=== PATIENT | female | born 1990 | race African-American/Black ===

== ENCOUNTER 2018-04-04 04:04 | Emergency (ER) | payer MEDICARE ==
[2018-04-04 04:47] LABS: ADD MAN DIFF? NO
[2018-04-04] MEDS: MORPHINE SULFATE 4 MG/ML DISP.SYRIN. IV (04:53)
[2018-04-04 04:57] LABS: BASO % 1 % (0-3); EOS # 0.1 x10^3/uL (0.0-0.7); EOS % 2 % (0-3); HEMATOCRIT 35.2 % (36.0-47.0); HEMOGLOBIN 11.9 g/dL (12.0-15.5); LYMPH # 2.4 x10^3/uL (1.0-4.8); LYMPH % 33 % (24-48); MEAN CORPUSCULAR HEMOGLOBIN 28 pg (25-35); MEAN CORPUSCULAR HGB CONC 34 g/dL (31-37); MEAN CORPUSCULAR VOLUME 83 fL (79-100); MONO # 0.5 x10^3/uL (0.0-1.1); MONO % 7 % (0-9); NEUT # 4.1 x10^3uL (1.8-7.7); NEUT % 58 % (31-73); PLATELET COUNT 228 x10^3/uL (140-400); RED BLOOD COUNT 4.25 x10^6/uL (3.50-5.40); RED CELL DISTRIBUTION WIDTH 16.1 % (11.5-14.5); WHITE BLOOD COUNT 7.1 x10^3/uL (4.0-11.0)
[2018-04-04 05:16] LABS: D-DIMER < 0.27 ug/mlFEU (0.00-0.50)
[2018-04-04 05:17] LABS: ANION GAP 8 (6-14); BLOOD UREA NITROGEN 5 mg/dL (7-20); CALCIUM 8.6 mg/dL (8.5-10.1); CARBON DIOXIDE 29 mmol/L (21-32); CHLORIDE 102 mmol/L (98-107); CREATININE 0.7 mg/dL (0.6-1.0); GFR 121.5; GLUCOSE 191 mg/dL (70-99); SODIUM 139 mmol/L (136-145)
[2018-04-04 05:24] LABS: TROPONINI < 0.017 ng/mL (0.000-0.055)
== END 2018-04-04 06:07 | disposition home or self-care (01) ==
LOC: ER 04:04
DX: R07.89 Other chest pain (principal); K21.9 Gastro-esophageal reflux disease without esophagitis; I10 Essential (primary) hypertension; E11.9 Type 2 diabetes mellitus without complications; F20.9 Schizophrenia, unspecified; Z88.0 Allergy status to penicillin
CPT/HCPCS: 36415; 71045; 80048; 84484; 85025; 85379; 93005; 96374; 99285-25; J2270

== ENCOUNTER 2018-04-12 11:21 | Emergency (ER) | payer MEDICARE ==
[2018-04-12 11:49] LABS: URINE HCG POC HCG NEGATIVE (Negative)
== END 2018-04-12 13:12 | disposition home or self-care (01) ==
LOC: ER 11:21
DX: R07.89 Other chest pain (principal); R05 Cough; I10 Essential (primary) hypertension; K21.9 Gastro-esophageal reflux disease without esophagitis; E11.9 Type 2 diabetes mellitus without complications; F20.9 Schizophrenia, unspecified; Z88.0 Allergy status to penicillin
CPT/HCPCS: 71046; 81025; 99284

== ENCOUNTER 2018-12-15 18:39 | Emergency (ER) | payer MEDICARE ==
[~2018-12-15] VITALS: Ht 170.2 cm; Wt 101.2 kg
[~2018-12-15 18:39] MED LIST: AZIT250T6 PO; HYDR-3164 PO; IBUP-1060 PO
[2018-12-15] MEDS ORDERED: IV NORMAL SALINE 1000ML BAG 1,000 ML IV SCH (18:51)
[2018-12-15] MEDS ORDERED: ONDANSETRON PF 4 MG/2 ML VIAL. IV ONE (19:00)
[2018-12-15] MEDS ORDERED: MORPHINE SULFATE 2 MG/ML VIAL. IV/SQ PRN (19:00)
[2018-12-15 19:04] LABS: BILIRUBIN,URINE NEGATIVE (NEG); CLARITY,URINE CLEAR; COLOR,URINE YELLOW; NITRITE,URINE NEGATIVE (NEG); PH,URINE 7.5; PROTEIN,URINE NEGATIVE (NEG-TRACE); UROBILINOGEN,URINE 0.2 mg/dL (0.2 mg/dL)
[2018-12-15 19:13] LABS: BACTERIA,URINE FEW /HPF (0-FEW); RBC,URINE 0 /HPF (0-2); SQUAMOUS EPITHELIAL CELL,UR MANY /LPF; WBC,URINE 0 /HPF (0-4)
--- NOTE | 2018-12-15 19:15 | PHYS DOC ---
Past Medical History Past Medical History: Diabetes-Type II, GERD, Hypertension, Schizophrenia Past Surgical History: Tonsillectomy Alcohol Use: None Drug Use: None Adult General Chief Complaint Chief Complaint: vomiting blood HPI HPI Patient is a 28-year-old female who presents with complaint of one-week history of nausea and vomiting. She states that initially she was having symptoms of upper respiratory infection to include a cough that was productive of sputum. She states that she is also been feeling short of breath and having some pain in her lower mid chest. She states that she still has a little bit of a cough but that is improved. She does indicate that she has been continuing to have some shortness of breath and lightheadedness however. She states that the vomitus has had some pink tinging to it making her believe that it's bloody. Patient does report to pain in her upper and mid abdomen that she rates at an 8 out of 10. She denies any radiation of the pain into her back. Review of Systems Review of Systems Constitutional: Denies fever or chills [] Respiratory: Positive cough and shortness of breath [] Cardiovascular: No additional information not addressed in HPI [] GI: Complains of abdominal pain with nausea and vomiting. Denies diarrhea [] Integument: Denies rash or skin lesions [] Neurologic: Denies headache, focal weakness or sensory changes [] All other systems were reviewed and found to be within normal limits, except as documented in this note. Current Medications Current Medications Current Medications Medications (Trade) Dose Ordered Sig/Christiano Start Time Stop Time Status Last Admin Dose Admin Info (CONTRAST GIVEN -- Rx MONITORING) 1 each PRN DAILY PRN 12/15/18 20:45 12/17/18 20:44 Iohexol (Omnipaque 300 Mg/ml) 75 ml 1X ONCE 12/15/18 20:45 12/15/18 20:46 DC 12/15/18 20:53 75 ML Morphine Sulfate (Morphine Sulfate) 2 mg PRN Q15MIN PRN 12/15/18 19:00 12/16/18 18:59 12/15/18 20:11 2 MG Ondansetron HCl (Zofran) 4 mg 1X ONCE 12/15/18 19:00 12/15/18 19:01 DC 12/15/18 20:11 4 MG Sodium Chloride 1,000 ml @ 1,000 mls/hr Q1H 12/15/18 18:51 12/15/18 19:50 DC 12/15/18 20:12 1,000 MLS/HR Allergies Allergies Allergies Coded Allergies Type Severity Reaction Last Updated Verified Penicillins Allergy Intermediate 04/12/18 Yes Physical Exam Physical Exam Constitutional: Well developed, well nourished, no acute distress, non-toxic appearance. [] HENT: Normocephalic, atraumatic, bilateral external ears normal, oropharynx moist, no oral exudates, nose normal. [] Eyes: PERRLA, EOMI, conjunctiva normal, no discharge. [] Neck: Normal range of motion, no tenderness, supple, no stridor. [] Cardiovascular: Regular rate and rhythm[] Lungs & Thorax: Bilateral breath sounds clear to auscultation [] Abdomen: Bowel sounds normal, soft, with mid to upper abdominal tenderness. [] Skin: Warm, dry, no erythema, no rash. [] Extremities: No tenderness, no cyanosis, no clubbing, ROM intact, no edema. [] Neurologic: Alert and oriented X 3, no focal deficits noted. [] Current Patient Data Vital Signs Vital Signs Date Time Temp Pulse Resp B/P (MAP) Pulse Ox O2 Delivery O2 Flow Rate FiO2 12/15/18 20:11 16 97 Room Air 12/15/18 19:09 98.6 112 144/79 (100) 98.6 Lab Values Laboratory Tests Test 12/15/18 18:46 12/15/18 18:48 12/15/18 19:50 POC Urine HCG, Qualitative Hcg negative (Negative) Urine Collection Type Unknown Urine Color Yellow Urine Clarity Clear Urine pH 7.5 Urine Specific [place] 1.010 Urine Protein Negative mg/dL (NEG-TRACE) Urine Glucose (UA) 100 mg/dL (NEG) Urine Ketones (Stick) Negative mg/dL (NEG) Urine Blood Negative (NEG) Urine Nitrite Negative (NEG) Urine Bilirubin Negative (NEG) Urine Urobilinogen Dipstick 0.2 mg/dL (0.2 mg/dL) Urine Leukocyte Esterase Negative (NEG) Urine RBC 0 /HPF (0-2) Urine WBC 0 /HPF (0-4) Urine Squamous Epithelial Cells Many /LPF Urine Bacteria Few /HPF (0-FEW) Urine Mucus Slight /LPF White Blood Count 6.6 x10^3/uL (4.0-11.0) Red Blood Count 5.08 x10^6/uL (3.50-5.40) Hemoglobin 13.6 g/dL (12.0-15.5) Hematocrit 41.1 % (36.0-47.0) Mean Corpuscular Volume 81 fL (79-100) Mean Corpuscular Hemoglobin 27 pg (25-35) Mean Corpuscular Hemoglobin Concent 33 g/dL (31-37) Red Cell Distribution Width 16.8 % (11.5-14.5) H Platelet Count 364 x10^3/uL (140-400) Neutrophils (%) (Auto) 41 % (31-73) Lymphocytes (%) (Auto) 48 % (24-48) Monocytes (%) (Auto) 9 % (0-9) Eosinophils (%) (Auto) 1 % (0-3) Basophils (%) (Auto) 1 % (0-3) Neutrophils # (Auto) 2.7 x10^3uL (1.8-7.7) Lymphocytes # (Auto) 3.2 x10^3/uL (1.0-4.8) Monocytes # (Auto) 0.6 x10^3/uL (0.0-1.1) Eosinophils # (Auto) 0.1 x10^3/uL (0.0-0.7) Basophils # (Auto) 0.1 x10^3/uL (0.0-0.2) D-Dimer (Elizabeth) < 0.27 ug/mlFEU Sodium Level 138 mmol/L (136-145) Potassium Level 4.0 mmol/L (3.5-5.1) Chloride Level 99 mmol/L (98-107) Carbon Dioxide Level 27 mmol/L (21-32) Anion Gap 12 (6-14) Blood Urea Nitrogen 5 mg/dL (7-20) L Creatinine 0.6 mg/dL (0.6-1.0) Estimated GFR (Cockcroft-Gault) 145.1 BUN/Creatinine Ratio 8 (6-20) Glucose Level 125 mg/dL (70-99) H Calcium Level 9.3 mg/dL (8.5-10.1) Total Bilirubin 0.1 mg/dL (0.2-1.0) L Aspartate Amino Transferase (AST) 12 U/L (15-37) L Alanine Aminotransferase (ALT) 13 U/L (14-59) L Alkaline Phosphatase 98 U/L (46-116) Total Protein 8.3 g/dL (6.4-8.2) H Albumin 3.7 g/dL (3.4-5.0) Albumin/Globulin Ratio 0.8 (1.0-1.7) L Lipase 52 U/L (73-393) L Laboratory Tests 12/15/18 19:50 Laboratory Tests 12/15/18 19:50 EKG EKG [] Radiology/Procedures Radiology/Procedures [] Impressions: PROCEDURE: PORTABLE CHEST 1V PROCEDURE: PORTABLE CHEST 1V CLINICAL INDICATION: COUGH COMPARISON: 04/12/2018 FINDINGS: No pneumothorax identified. Cardiac and mediastinal contours unremarkable. No pulmonary consolidation or acute airspace disease. No acute osseous abnormalities identified. IMPRESSION: No pulmonary consolidation or acute airspace disease. Electronically signed by: Markell Capone DO (12/15/2018 7:47 PM) [facility] PROCEDURE: CT ABD PELV W/ IV CONTRST ONLY PQRS Compliance statement: One or more of the following individualized dose reduction techniques were utilized for this examination: 1. Automated exposure control. 2. Adjustment of the mA and/or kV according to patient size. 3. Use of iterative reconstruction technique. Indication:abd pain, OMNI 300, 75ml TECHNIQUE: CT abdomen and pelvis with IV contrast with multiplanar reformats. COMPARISON: None FINDINGS: Heart is normal in size. No pericardial or pleural effusion. Liver, spleen, pancreas, adrenals and kidneys within normal limits. Status post cholecystectomy. No enlarged retroperitoneal or pelvic adenopathy. No free pelvic fluid or ascites. Mildly enlarged bilateral inguinal lymph nodes, nonspecific likely reactive, the largest on the left side measuring 1.5 x 1.0 cm. Enlarged right external iliac chain lymph node measuring 1.8 x 1.2 cm. No bowel obstruction. Normal appendix. Anteverted uterus. Urinary bladder is within normal limits. No pneumoperitoneum. No suspicious bony lesion. IMPRESSION: 1. No acute findings. 2. Mildly enlarged inguinal and right external iliac chain lymph nodes, nonspecific likely reactive. Electronically signed by: Markell Capone DO (12/15/2018 9:10 PM) [facility] Course & Med Decision Making Course & Med Decision Making Pertinent Labs and Imaging studies reviewed. (See chart for details) [] Dragon Disclaimer Dragon Disclaimer This electronic medical record was generated, in whole or in part, using a voice recognition dictation system. Departure Departure Impression: Primary Impression: Acute bronchitis Additional Impression: Nausea and vomiting Disposition: 01 HOME, SELF-CARE Condition: STABLE Referrals: NO PCP (PCP) Patient Instructions: Acute Bronchitis, Nausea and Vomiting Scripts Promethazine Hcl/Codeine (PROMETHAZINE-CODEINE SYRUP) 118 Ml Syrup 5 ML PO Q4-6HRS PRN for COUGH, #120 ML Prov: CRISTAL SCHREIBER Jr. DO 12/15/18 Azithromycin (ZITHROMAX) 250 Mg Tablet 1 PKG PO UD, #6 TAB Prov: CRISTAL SCHREIBER Jr. DO 12/15/18 Problem Qualifiers Primary Impression: Acute bronchitis Bronchitis organism: unspecified organism Qualified Codes: J20.9 - Acute bronchitis, unspecified Additional Impression: Nausea and vomiting Vomiting type: unspecified Vomiting Intractability: non-intractable Qualified Codes: R11.2 - Nausea with vomiting, unspecified CRISTAL SCHREIBER Jr. DO Dec 15, 2018 19:15
--- NOTE | 2018-12-15 19:50 | RAD ---
PROCEDURE: PORTABLE CHEST 1V CLINICAL INDICATION: COUGH COMPARISON: 04/12/2018 FINDINGS: No pneumothorax identified. Cardiac and mediastinal contours unremarkable. No pulmonary consolidation or acute airspace disease. No acute osseous abnormalities identified. IMPRESSION: No pulmonary consolidation or acute airspace disease. Electronically signed by: Markell Capone DO (12/15/2018 7:47 PM) [facility]
[2018-12-15 19:56] LABS: BASO # 0.1 x10^3/uL (0.0-0.2); BASO % 1 % (0-3); EOS # 0.1 x10^3/uL (0.0-0.7); EOS % 1 % (0-3); HEMATOCRIT 41.1 % (36.0-47.0); HEMOGLOBIN 13.6 g/dL (12.0-15.5); LYMPH # 3.2 x10^3/uL (1.0-4.8); LYMPH % 48 % (24-48); MEAN CORPUSCULAR HEMOGLOBIN 27 pg (25-35); MEAN CORPUSCULAR HGB CONC 33 g/dL (31-37); MEAN CORPUSCULAR VOLUME 81 fL (79-100); MONO # 0.6 x10^3/uL (0.0-1.1); MONO % 9 % (0-9); NEUT # 2.7 x10^3uL (1.8-7.7); NEUT % 41 % (31-73); PLATELET COUNT 364 x10^3/uL (140-400); RED BLOOD COUNT 5.08 x10^6/uL (3.50-5.40); RED CELL DISTRIBUTION WIDTH 16.8 % (11.5-14.5); WHITE BLOOD COUNT 6.6 x10^3/uL (4.0-11.0)
[2018-12-15 20:03] LABS: CALCIUM 9.3 mg/dL (8.5-10.1); CREATININE 0.6 mg/dL (0.6-1.0); GFR 145.1
[2018-12-15 20:09] LABS: ALBUMIN 3.7 g/dL (3.4-5.0); ALBUMIN/GLOBULIN RATIO 0.8 (1.0-1.7); TOTAL BILIRUBIN 0.1 mg/dL (0.2-1.0); TOTAL PROTEIN 8.3 g/dL (6.4-8.2)
[2018-12-15] MEDS ORDERED: IOHEXOL 300 MG/ML 100ML VIAL. IV ONE (20:45)
[2018-12-15] MEDS ORDERED: CONTRAST GIVEN. MC PRN (20:45)
[2018-12-15 21:00] VITALS: BP 124/74
--- NOTE | 2018-12-15 21:13 | RAD ---
PQRS Compliance statement: One or more of the following individualized dose reduction techniques were utilized for this examination: 1. Automated exposure control. 2. Adjustment of the mA and/or kV according to patient size. 3. Use of iterative reconstruction technique. Indication:abd pain, OMNI 300, 75ml TECHNIQUE: CT abdomen and pelvis with IV contrast with multiplanar reformats. COMPARISON: None FINDINGS: Heart is normal in size. No pericardial or pleural effusion. Liver, spleen, pancreas, adrenals and kidneys within normal limits. Status post cholecystectomy. No enlarged retroperitoneal or pelvic adenopathy. No free pelvic fluid or ascites. Mildly enlarged bilateral inguinal lymph nodes, nonspecific likely reactive, the largest on the left side measuring 1.5 x 1.0 cm. Enlarged right external iliac chain lymph node measuring 1.8 x 1.2 cm. No bowel obstruction. Normal appendix. Anteverted uterus. Urinary bladder is within normal limits. No pneumoperitoneum. No suspicious bony lesion. IMPRESSION: 1. No acute findings. 2. Mildly enlarged inguinal and right external iliac chain lymph nodes, nonspecific likely reactive. Electronically signed by: Markell Capone DO (12/15/2018 9:10 PM) [facility]
[2018-12-15] MEDS ORDERED: AZIT250T PO (21:47)
[2018-12-15] MEDS ORDERED: PROM118S5 PO (21:47)
--- NOTE | 2018-12-16 08:44 | EKG ---
[facility] [address] [place] [address] Test Date: 2018-12-15 Test Time: 19:28:07 Pat Name: AGUILAR JACOBSEN Department: Room: Gender: Female Mutuel Clerk: VI : 1990 Requested By: CRISTAL SCHREIBER Order Number: [id number] Reading MD: Spencer Burnett MD Measurements Intervals [place] Rate: 99 P: 45 LA: 164 QRS: 26 QRSD: 88 T: 17 QT: 342 QTc: 444 Interpretive Statements SINUS RHYTHM Electronically Signed On 12-19-2018 15:12:36 CDT by Spencer Burnett MD
== END 2018-12-15 21:57 | disposition home or self-care (01) ==
LOC: ER 18:39
DX: J20.9 Acute bronchitis, unspecified (principal); R11.2 Nausea with vomiting, unspecified; R06.02 Shortness of breath; R42 Dizziness and giddiness; K21.9 Gastro-esophageal reflux disease without esophagitis; I10 Essential (primary) hypertension; E11.9 Type 2 diabetes mellitus without complications; F20.9 Schizophrenia, unspecified; Z88.0 Allergy status to penicillin
CPT/HCPCS: 36415; 71045; 74177; 80053; 81001; 81025; 83690; 85025; 85379; 93005; 96361; 96374; 96375; 99285; J2270; J2405; J7030; Q9967

== ENCOUNTER 2019-02-18 15:42 | Emergency (ER) | payer MEDICARE ==
[~2019-02-18] VITALS: Ht 170.2 cm; Wt 103.4 kg
[~2019-02-18 15:42] MED LIST changes: +AZIT250T PO; +PROM118S5 PO
[2019-02-18] MEDS ORDERED: ONDANSETRON PF 4 MG/2 ML VIAL. IV ONE (16:00)
[2019-02-18] MEDS ORDERED: KETOROLAC 15 MG/ML VIAL. IV ONE (16:00)
[2019-02-18] MEDS ORDERED: IV NORMAL SALINE 1000ML BAG 1,000 ML IV ONE (16:00)
[2019-02-18 16:17] LABS: BILIRUBIN,URINE NEGATIVE (NEG); CLARITY,URINE CLEAR; COLOR,URINE YELLOW; NITRITE,URINE NEGATIVE (NEG); PH,URINE 6.5; PROTEIN,URINE NEGATIVE (NEG-TRACE)
[2019-02-18 16:27] LABS: BACTERIA,URINE FEW /HPF (0-FEW); RBC,URINE 0 /HPF (0-2); SQUAMOUS EPITHELIAL CELL,UR MANY /LPF
[2019-02-18 16:28] LABS: BASO # 0.1 x10^3/uL (0.0-0.2); BASO % 1 % (0-3); EOS # 0.1 x10^3/uL (0.0-0.7); EOS % 1 % (0-3); HEMATOCRIT 38.2 % (36.0-47.0); HEMOGLOBIN 12.7 g/dL (12.0-15.5); LYMPH # 3.3 x10^3/uL (1.0-4.8); LYMPH % 33 % (24-48); MEAN CORPUSCULAR HEMOGLOBIN 26 pg (25-35); MEAN CORPUSCULAR HGB CONC 33 g/dL (31-37); MEAN CORPUSCULAR VOLUME 77 fL (79-100); MONO # 0.4 x10^3/uL (0.0-1.1); MONO % 4 % (0-9); NEUT % 60 % (31-73); PLATELET COUNT 367 x10^3/uL (140-400); RED BLOOD COUNT 4.94 x10^6/uL (3.50-5.40); RED CELL DISTRIBUTION WIDTH 15.2 % (11.5-14.5); WHITE BLOOD COUNT 9.9 x10^3/uL (4.0-11.0)
[2019-02-18 16:30] VITALS: BP 121/64
[2019-02-18 16:39] LABS: CALCIUM 9.2 mg/dL (8.5-10.1); CREATININE 0.6 mg/dL (0.6-1.0); GFR 145.1; POTASSIUM 3.8 mmol/L (3.5-5.1)
[2019-02-18 16:46] LABS: ALBUMIN 3.2 g/dL (3.4-5.0); ALBUMIN/GLOBULIN RATIO 0.7 (1.0-1.7); TOTAL BILIRUBIN 0.2 mg/dL (0.2-1.0); TOTAL PROTEIN 7.6 g/dL (6.4-8.2)
--- NOTE | 2019-02-18 16:55 | RAD ---
AP portable chest radiograph 02/18/2019 Clinical History: Shortness of breath and fever. An AP erect portable digital radiograph of the chest was obtained. Comparison study is dated 12/15/2018. The cardiac and mediastinal silhouettes are within normal limits in size and configuration. No acute pulmonary infiltrate is seen. No pleural effusion or pneumothorax is noted. The osseous structures are grossly intact. Impression: No acute abnormality is seen. Electronically signed by: Mauricio Ng MD (02/18/2019 4:52 PM) [facility]
[2019-02-18] MEDS ORDERED: BENZ100C PO (17:06)
--- NOTE | 2019-02-18 18:00 | PHYS DOC ---
Past Medical History Past Medical History: Diabetes-Type II, GERD, Hypertension, Schizophrenia Past Surgical History: Cholecystectomy, Tonsillectomy Alcohol Use: None Drug Use: None Adult General Chief Complaint Chief Complaint: MULTIPLE COMPLAINTS HPI HPI Patient is a 28 year old female brought in by emesis with multiple complaints she has had abdominal pain on and off for 2 months she ate some pizza that she touches her up some blood but perhaps it was just because she's not sure. In addition she has a cough she has a runny nose she has body aches she has a little bit of a sore throat no definite fever that she knows but she says she feels similar to last time she had pneumonia and she wants to be checked for that. Review of Systems Review of Systems Musculoskeletal: Denies back pain or joint pain [] Integument: Denies rash or skin lesions [] Neurologic: Denies headache, focal weakness or sensory changes [] Endocrine: Denies polyuria or polydipsia [] All other systems were reviewed and found to be within normal limits, except as documented in this note. Current Medications Current Medications Current Medications Medications (Trade) Dose Ordered Sig/Christiano Start Time Stop Time Status Last Admin Dose Admin Ketorolac Tromethamine (Toradol 15mg Vial) 15 mg 1X ONCE 02/18/19 16:00 02/18/19 16:01 DC 02/18/19 16:15 15 MG Ondansetron HCl (Zofran) 4 mg 1X ONCE 02/18/19 16:00 02/18/19 16:01 DC 02/18/19 16:15 4 MG Sodium Chloride 1,000 ml @ 1,000 mls/hr 1X ONCE 02/18/19 16:00 02/18/19 16:59 DC 02/18/19 16:00 1,000 MLS/HR Allergies Allergies Allergies Coded Allergies Type Severity Reaction Last Updated Verified Penicillins Allergy Intermediate 04/12/18 Yes lisinopril Allergy Intermediate RASH 02/18/19 Yes Physical Exam Physical Exam Constitutional: Well developed, well nourished, no acute distress, non-toxic appearance. [] HENT: Normocephalic, atraumatic, bilateral external ears normal, oropharynx moist, no oral exudates, nose normal. [] Eyes: PERRLA. Neck: Normal range of motion, no tenderness, supple, no stridor. [] Cardiovascular:Heart rate regular rhythm, no murmur [] Lungs & Thorax: Bilateral breath sounds clear to auscultation [] Abdomen: Bowel sounds normal, soft, no tenderness, no masses, no pulsatile masses. [] Extremities: No tenderness, no cyanosis, no clubbing, ROM intact, no edema. [] Neurologic: Alert and oriented X 3, normal motor function, normal sensory function, no focal deficits noted. [] Psychologic: Affect normal, judgement normal, mood normal. [] Current Patient Data Vital Signs Vital Signs Date Time Temp Pulse Resp B/P (MAP) Pulse Ox O2 Delivery O2 Flow Rate FiO2 02/18/19 16:30 102 20 121/64 (83) 99 Room Air 02/18/19 15:48 97.9 97.9 Lab Values Laboratory Tests Test 02/18/19 16:08 02/18/19 16:11 02/18/19 16:23 Urine Collection Type Unknown Urine Color Yellow Urine Clarity Clear Urine pH 6.5 Urine Specific [place] >=1.030 Urine Protein Negative mg/dL (NEG-TRACE) Urine Glucose (UA) 500 mg/dL (NEG) Urine Ketones (Stick) Negative mg/dL (NEG) Urine Blood Negative (NEG) Urine Nitrite Negative (NEG) Urine Bilirubin Negative (NEG) Urine Urobilinogen Dipstick 1.0 mg/dL (0.2 mg/dL) Urine Leukocyte Esterase Trace (NEG) Urine RBC 0 /HPF (0-2) Urine WBC 1-4 /HPF (0-4) Urine Squamous Epithelial Cells Many /LPF Urine Bacteria Few /HPF (0-FEW) Urine Mucus Slight /LPF POC Urine HCG, Qualitative Hcg negative (Negative) White Blood Count 9.9 x10^3/uL (4.0-11.0) Red Blood Count 4.94 x10^6/uL (3.50-5.40) Hemoglobin 12.7 g/dL (12.0-15.5) Hematocrit 38.2 % (36.0-47.0) Mean Corpuscular Volume 77 fL (79-100) L Mean Corpuscular Hemoglobin 26 pg (25-35) Mean Corpuscular Hemoglobin Concent 33 g/dL (31-37) Red Cell Distribution Width 15.2 % (11.5-14.5) H Platelet Count 367 x10^3/uL (140-400) Neutrophils (%) (Auto) 60 % (31-73) Lymphocytes (%) (Auto) 33 % (24-48) Monocytes (%) (Auto) 4 % (0-9) Eosinophils (%) (Auto) 1 % (0-3) Basophils (%) (Auto) 1 % (0-3) Neutrophils # (Auto) 6.0 x10^3uL (1.8-7.7) Lymphocytes # (Auto) 3.3 x10^3/uL (1.0-4.8) Monocytes # (Auto) 0.4 x10^3/uL (0.0-1.1) Eosinophils # (Auto) 0.1 x10^3/uL (0.0-0.7) Basophils # (Auto) 0.1 x10^3/uL (0.0-0.2) Sodium Level 134 mmol/L (136-145) L Potassium Level 3.8 mmol/L (3.5-5.1) Chloride Level 99 mmol/L (98-107) Carbon Dioxide Level 26 mmol/L (21-32) Anion Gap 9 (6-14) Blood Urea Nitrogen 10 mg/dL (7-20) Creatinine 0.6 mg/dL (0.6-1.0) Estimated GFR (Cockcroft-Gault) 145.1 BUN/Creatinine Ratio 17 (6-20) Glucose Level 250 mg/dL (70-99) H Calcium Level 9.2 mg/dL (8.5-10.1) Total Bilirubin 0.2 mg/dL (0.2-1.0) Aspartate Amino Transferase (AST) 7 U/L (15-37) L Alanine Aminotransferase (ALT) 12 U/L (14-59) L Alkaline Phosphatase 95 U/L (46-116) Total Protein 7.6 g/dL (6.4-8.2) Albumin 3.2 g/dL (3.4-5.0) L Albumin/Globulin Ratio 0.7 (1.0-1.7) L Lipase 70 U/L (73-393) L Laboratory Tests 02/18/19 16:23 Laboratory Tests 02/18/19 16:23 EKG EKG [] Radiology/Procedures Radiology/Procedures [] Impressions: cxr neg Course & Med Decision Making Course & Med Decision Making Pertinent Labs and Imaging studies reviewed. (See chart for details) 28-year-old diabetic presenting with multiple complaints really no acute focalizing issues on clinical examination labs look good chest x-ray negative for pneumonia she did request promethazine with codeine I did let her know that I did not think this was necessary she does not have pneumonia recommended Tessalon Perles [id number] agents for pain rest hydration gradual return to activity return precautions discussed and she voiced understanding clinical examination was not consistent with appendicitis or other acute intra-abdominal pathology. Urinalysis was negative for infection labs were not consistent with acute GI bleeding either. [] Dragon Disclaimer Dragon Disclaimer This electronic medical record was generated, in whole or in part, using a voice recognition dictation system. Departure Departure Impression: Primary Impression: Cough Disposition: 01 HOME, SELF-CARE Condition: STABLE Referrals: UNKNOWN PCP NAME (PCP) Patient Instructions: Cough, Adult, [id number] Scripts Benzonatate (TESSALON PERLE) 100 Mg Capsule 1 CAP PO TID, #21 CAP Prov: DARRIAN GREGG MD 02/18/19 DARRIAN GREGG MD Feb 18, 2019 18:00
== END 2019-02-18 17:13 | disposition home or self-care (01) ==
LOC: ER 15:42
DX: R05 Cough (principal); R11.10 Vomiting, unspecified; R10.9 Unspecified abdominal pain; E11.9 Type 2 diabetes mellitus without complications; K21.9 Gastro-esophageal reflux disease without esophagitis; I10 Essential (primary) hypertension; F20.9 Schizophrenia, unspecified; Z90.49 Acquired absence of other specified parts of digestive tract; Z90.89 Acquired absence of other organs; Z88.0 Allergy status to penicillin; Z88.8 Allergy status to other drugs, medicaments and biological substances
CPT/HCPCS: 36415; 71045; 80053; 81001; 81025; 83690; 85025; 87086; 96361; 96374; 96375; 99285; J1885; J2405; J7030

== ENCOUNTER 2019-05-15 00:23 | Emergency (ER) | payer MEDICARE ==
[~2019-05-15] VITALS: Ht 170.2 cm; Wt 99.3 kg
[~2019-05-15 00:23] MED LIST changes: +BENZ100C PO
[2019-05-15 02:56] LABS: BASO # 0.2 x10^3/uL (0.0-0.2); BASO % 2 % (0-3); EOS # 0.2 x10^3/uL (0.0-0.7); EOS % 2 % (0-3); HEMATOCRIT 35.6 % (36.0-47.0); HEMOGLOBIN 11.9 g/dL (12.0-15.5); LYMPH # 3.8 x10^3/uL (1.0-4.8); LYMPH % 34 % (24-48); MEAN CORPUSCULAR HEMOGLOBIN 26 pg (25-35); MEAN CORPUSCULAR HGB CONC 34 g/dL (31-37); MEAN CORPUSCULAR VOLUME 77 fL (79-100); MONO # 0.5 x10^3/uL (0.0-1.1); MONO % 5 % (0-9); NEUT # 6.4 x10^3/uL (1.8-7.7); NEUT % 58 % (31-73); PLATELET COUNT 348 x10^3/uL (140-400); RED BLOOD COUNT 4.62 x10^6/uL (3.50-5.40); RED CELL DISTRIBUTION WIDTH 16.8 % (11.5-14.5); WHITE BLOOD COUNT 11.1 x10^3/uL (4.0-11.0)
[2019-05-15 03:00] LABS: BILIRUBIN,URINE NEGATIVE (NEG); CLARITY,URINE CLEAR; COLOR,URINE YELLOW; NITRITE,URINE NEGATIVE (NEG); PH,URINE 6.5; PROTEIN,URINE NEGATIVE (NEG-TRACE); UROBILINOGEN,URINE 0.2 mg/dL (0.2 mg/dL)
[2019-05-15] MEDS ORDERED: IV NORMAL SALINE 1000ML BAG 1,000 ML IV ONE (03:00)
[2019-05-15] MEDS ORDERED: KETOROLAC 15 MG/ML VIAL. IV ONE (03:00)
[2019-05-15 03:07] LABS: BACTERIA,URINE FEW /HPF (0-FEW); RBC,URINE 0 /HPF (0-2); SQUAMOUS EPITHELIAL CELL,UR MOD /LPF; WBC,URINE OCC /HPF (0-4)
[2019-05-15 03:07] LABS: CALCIUM 8.9 mg/dL (8.5-10.1); CREATININE 0.8 mg/dL (0.6-1.0); GFR 103.3; POTASSIUM 3.8 mmol/L (3.5-5.1)
[2019-05-15 03:14] LABS: ALBUMIN 3.2 g/dL (3.4-5.0); ALBUMIN/GLOBULIN RATIO 0.8 (1.0-1.7); MAGNESIUM 1.5 mg/dL (1.8-2.4); TOTAL BILIRUBIN 0.2 mg/dL (0.2-1.0); TOTAL PROTEIN 7.1 g/dL (6.4-8.2)
--- NOTE | 2019-05-15 03:54 | RAD ---
Ultrasound the pelvis transabdominal and transvaginal imaging. HISTORY: Left adnexal pain Transabdominal ultrasound was performed. The bladder was not distended. Bowel gas obscures visualization. Transvaginal imaging was performed for further evaluation. There is a small amount of free fluid in the cul-de-sac. Cervix was normal. Uterus is normal in size and appearance. Endometrium was normal measuring 4 mm. Uterus measured 6.9 x 4.4 x 2.7 cm. Right ovary measured 3.7 x 2.8 x 2.5 cm. There is no right ovarian mass. There is flow in the right ovary with color imaging and Doppler. Left ovary measured 3.1 x 1.8 x 1.4 cm. There is flow in the left ovary with color imaging and Doppler. IMPRESSION: 1. Small amount of free fluid. 2. Normal ovaries and uterus. 3. There is not ultrasound evidence of torsion. Electronically signed by: Joe Baer MD (05/15/2019 3:51 AM) [facility]
[2019-05-15] MEDS ORDERED: NAPR-695 PO (05:14)
--- NOTE | 2019-05-15 05:14 | PHYS DOC ---
Past Medical History Past Medical History: Diabetes-Type II, GERD, Hypertension, Schizophrenia Past Surgical History: Cholecystectomy, Tonsillectomy Alcohol Use: None Drug Use: None Adult General Chief Complaint Chief Complaint: PELVIC PAIN HPI HPI Patient is a 29 year old [f__sex] who presents with [] Review of Systems Review of Systems Constitutional: Denies fever or chills [] Eyes: Denies change in visual acuity, redness, or eye pain [] HENT: Denies nasal congestion or sore throat [] Respiratory: Denies cough or shortness of breath [] Cardiovascular: No additional information not addressed in HPI [] GI: Denies abdominal pain, nausea, vomiting, bloody stools or diarrhea [] : Denies dysuria or hematuria [] Musculoskeletal: Denies back pain or joint pain [] Integument: Denies rash or skin lesions [] Neurologic: Denies headache, focal weakness or sensory changes [] Endocrine: Denies polyuria or polydipsia [] All other systems were reviewed and found to be within normal limits, except as documented in this note. Current Medications Current Medications Current Medications Medications (Trade) Dose Ordered Sig/Christiano Start Time Stop Time Status Last Admin Dose Admin Ketorolac Tromethamine (Toradol 15mg Vial) 15 mg 1X ONCE 05/15/19 03:00 05/15/19 03:01 DC 05/15/19 03:13 15 MG Sodium Chloride 1,000 ml @ 1,000 mls/hr 1X ONCE 05/15/19 03:00 05/15/19 03:59 DC 05/15/19 03:13 1,000 MLS/HR Allergies Allergies Allergies Coded Allergies Type Severity Reaction Last Updated Verified Penicillins Allergy Intermediate 04/12/18 Yes lisinopril Allergy Intermediate RASH 02/18/19 Yes Physical Exam Physical Exam Constitutional: Well developed, well nourished, no acute distress, non-toxic appearance. [] HENT: Normocephalic, atraumatic, bilateral external ears normal, oropharynx moist, no oral exudates, nose normal. [] Eyes: PERRLA, EOMI, conjunctiva normal, no discharge. [] Neck: Normal range of motion, no tenderness, supple, no stridor. [] Cardiovascular:Heart rate regular rhythm, no murmur [] Lungs & Thorax: Bilateral breath sounds clear to auscultation [] Abdomen: Bowel sounds normal, soft, no tenderness, no masses, no pulsatile masses. [] Skin: Warm, dry, no erythema, no rash. [] Back: No tenderness, no CVA tenderness. [] Extremities: No tenderness, no cyanosis, no clubbing, ROM intact, no edema. [] Neurologic: Alert and oriented X 3, normal motor function, normal sensory function, no focal deficits noted. [] Psychologic: Affect normal, judgement normal, mood normal. [] Current Patient Data Vital Signs Vital Signs Date Time Temp Pulse Resp B/P (MAP) Pulse Ox O2 Delivery O2 Flow Rate FiO2 05/15/19 04:30 76 18 112/64 (80) 97 Room Air 05/15/19 02:10 98.2 98.2 Lab Values Laboratory Tests Test 05/15/19 02:20 05/15/19 02:22 05/15/19 02:50 Urine Collection Type Unknown Urine Color Yellow Urine Clarity Clear Urine pH 6.5 Urine Specific [place] 1.020 Urine Protein Negative mg/dL (NEG-TRACE) Urine Glucose (UA) Negative mg/dL (NEG) Urine Ketones (Stick) Negative mg/dL (NEG) Urine Blood Negative (NEG) Urine Nitrite Negative (NEG) Urine Bilirubin Negative (NEG) Urine Urobilinogen Dipstick 0.2 mg/dL (0.2 mg/dL) Urine Leukocyte Esterase Negative (NEG) Urine RBC 0 /HPF (0-2) Urine WBC Occ /HPF (0-4) Urine Squamous Epithelial Cells Mod /LPF Urine Bacteria Few /HPF (0-FEW) Urine Mucus Mod /LPF POC Urine HCG, Qualitative Hcg negative (Negative) White Blood Count 11.1 x10^3/uL (4.0-11.0) H Red Blood Count 4.62 x10^6/uL (3.50-5.40) Hemoglobin 11.9 g/dL (12.0-15.5) L Hematocrit 35.6 % (36.0-47.0) L Mean Corpuscular Volume 77 fL (79-100) L Mean Corpuscular Hemoglobin 26 pg (25-35) Mean Corpuscular Hemoglobin Concent 34 g/dL (31-37) Red Cell Distribution Width 16.8 % (11.5-14.5) H Platelet Count 348 x10^3/uL (140-400) Neutrophils (%) (Auto) 58 % (31-73) Lymphocytes (%) (Auto) 34 % (24-48) Monocytes (%) (Auto) 5 % (0-9) Eosinophils (%) (Auto) 2 % (0-3) Basophils (%) (Auto) 2 % (0-3) Neutrophils # (Auto) 6.4 x10^3/uL (1.8-7.7) Lymphocytes # (Auto) 3.8 x10^3/uL (1.0-4.8) Monocytes # (Auto) 0.5 x10^3/uL (0.0-1.1) Eosinophils # (Auto) 0.2 x10^3/uL (0.0-0.7) Basophils # (Auto) 0.2 x10^3/uL (0.0-0.2) Sodium Level 141 mmol/L (136-145) Potassium Level 3.8 mmol/L (3.5-5.1) Chloride Level 104 mmol/L (98-107) Carbon Dioxide Level 27 mmol/L (21-32) Anion Gap 10 (6-14) Blood Urea Nitrogen 11 mg/dL (7-20) Creatinine 0.8 mg/dL (0.6-1.0) Estimated GFR (Cockcroft-Gault) 103.3 BUN/Creatinine Ratio 14 (6-20) Glucose Level 127 mg/dL (70-99) H Calcium Level 8.9 mg/dL (8.5-10.1) Magnesium Level 1.5 mg/dL (1.8-2.4) L Total Bilirubin 0.2 mg/dL (0.2-1.0) Aspartate Amino Transferase (AST) 7 U/L (15-37) L Alanine Aminotransferase (ALT) 10 U/L (14-59) L Alkaline Phosphatase 79 U/L (46-116) Total Protein 7.1 g/dL (6.4-8.2) Albumin 3.2 g/dL (3.4-5.0) L Albumin/Globulin Ratio 0.8 (1.0-1.7) L Lipase 66 U/L (73-393) L Laboratory Tests 05/15/19 02:50 Laboratory Tests 05/15/19 02:50 Microbiology 05/15/19 Wet Prep - Final, Complete EKG EKG [] Radiology/Procedures Radiology/Procedures [] Course & Med Decision Making Course & Med Decision Making Pertinent Labs and Imaging studies reviewed. (See chart for details) [] Char Disclaimer Tauruson Disclaimer This electronic medical record was generated, in whole or in part, using a voice recognition dictation system. Departure Departure Impression: Primary Impression: Pelvic pain Disposition: HOME, SELF-CARE Condition: STABLE Referrals: NO PCP (PCP) SUJATA HANSON MD Patient Instructions: Pelvic Pain, Female, [id number] Scripts Naproxen (NAPROXEN) 375 Mg Tablet 375 MG PO TID PRN PRN for PAIN, #20 Prov: ROSETTA MOLINA DO 05/15/19 ROSETTA MOLINA DO May 15, 2019 05:14
[2019-05-15 05:20] VITALS: BP 107/55
[2019-05-17 00:07] LABS: GC PROBE Negative (Negative)
== END 2019-05-15 05:22 | disposition home or self-care (01) ==
LOC: ER 00:23
DX: R10.2 Pelvic and perineal pain (principal); E11.9 Type 2 diabetes mellitus without complications; K21.9 Gastro-esophageal reflux disease without esophagitis; I10 Essential (primary) hypertension; Z90.49 Acquired absence of other specified parts of digestive tract; Z88.0 Allergy status to penicillin; Z90.89 Acquired absence of other organs; Z88.8 Allergy status to other drugs, medicaments and biological substances
CPT/HCPCS: 36415; 76830; 76856; 80053; 81001; 81025; 83690; 83735; 85025; 87491; 87591; 96374; 99285; J1885; J7030; Q0111

== ENCOUNTER 2019-06-24 16:47 | Emergency (ER) | payer MEDICARE, OTHER ==
[~2019-06-24] VITALS: Ht 172.7 cm; Wt 99.3 kg
[~2019-06-24 16:47] MED LIST changes: +NAPR-695 PO
[2019-06-24 17:10] VITALS: BP 146/84
[2019-06-24] MEDS ORDERED: IBUPROFEN 200 MG TABLET. PO ONE (17:15)
[2019-06-24] MEDS ORDERED: CYCLOBENZAPRINE 10 MG TABLET. PO ONE (17:15)
--- NOTE | 2019-06-24 17:16 | PHYS DOC ---
Past Medical History Past Medical History: Diabetes-Type II, GERD, Hypertension, Schizophrenia (ARSENIO ULRICH APRN) Past Surgical History: Cholecystectomy, Tonsillectomy (ARSENIO ULRICH APRN) Alcohol Use: None Drug Use: None (ARSENIO ULRICH APRN) Attending Signature I have participated in the care of this patient and I have reviewed and agree with all pertinent clinical information above including history, exam, and recommendations. (JENNY KWONG MD) Adult General Chief Complaint Chief Complaint: SORE THROAT HPI HPI Patient is a 29 year old female with history of diabetes type 2, hypertension, schizophrenia acid reflex, tonsillectomy, who presents to the ED today with multiple complaints. Patient reports she's had sore throat and scratchy voice for 3 months. She states she is followed up with multiple hospitals including 2 weeks ago at [facility] where she was told she has a viral laryngitis. She states she was given capsules for her symptoms which are not helping, she states she like us to give her oxycodone or hydrocodone for her symptoms. She is also complaining of a cough for 3 months. She denies any history of smoking. She states she needs to be admitted because she knows she has pneumonia. Denies any fever. (ARSENIO ULRICH APRN) Review of Systems Review of Systems Constitutional: Denies fever or chills [] Eyes: Denies change in visual acuity, redness, or eye pain [] HENT: Reports sore throat and scratchy voice. Denies nasal congestion Respiratory: Reports cough, denies shortness of breath [] Cardiovascular: No additional information not addressed in HPI [] GI: Denies abdominal pain, nausea, vomiting, bloody stools or diarrhea [] : Denies dysuria or hematuria [] Musculoskeletal: Denies back pain or joint pain [] Integument: Denies rash or skin lesions [] Neurologic: Denies headache, focal weakness or sensory changes [] All other systems were reviewed and found to be within normal limits, except as documented in this note. (ARSENIO ULRICH APRN) Current Medications Current Medications Current Medications Medications (Trade) Dose Ordered Sig/Christiano Start Time Stop Time Status Last Admin Dose Admin Cyclobenzaprine HCl (Flexeril) 10 mg 1X ONCE 06/24/19 17:15 06/24/19 17:16 DC 06/24/19 17:19 10 MG Ibuprofen (Motrin) 600 mg 1X ONCE 06/24/19 17:15 06/24/19 17:16 DC 06/24/19 17:19 600 MG (JENNY KWONG MD) Allergies Allergies Allergies Coded Allergies Type Severity Reaction Last Updated Verified Penicillins Allergy Intermediate 04/12/18 Yes lisinopril Allergy Intermediate RASH 02/18/19 Yes (JENNY KWONG MD) Physical Exam Physical Exam Constitutional: Well developed, well nourished, no acute distress, non-toxic appearance. [] HENT: Normocephalic, atraumatic, bilateral external ears normal, oropharynx moist, no oral exudates, nose normal. [] Midline uvula. Trace erythema to posterior pharynx. Airway is open. Eyes: PERRLA, EOMI, conjunctiva normal, no discharge. [] Neck: Normal range of motion, no tenderness, supple, no stridor. [] Cardiovascular:Heart rate regular rhythm, no murmur [] Lungs & Thorax: Bilateral breath sounds clear to auscultation [] Abdomen: Bowel sounds normal, soft, no tenderness, no masses, no pulsatile masses. [] Skin: Warm, dry, no erythema, no rash. [] Back: No tenderness, no CVA tenderness. [] Extremities: No tenderness, no cyanosis, no clubbing, ROM intact, no edema. [] Neurologic: Alert and oriented X 3, normal motor function, normal sensory function, no focal deficits noted. [] Psychologic: Affect normal, judgement normal, mood normal. [] (ARSENIO ULRICH APRN) Current Patient Data Vital Signs Vital Signs Date Time Temp Pulse Resp B/P (MAP) Pulse Ox O2 Delivery O2 Flow Rate FiO2 06/24/19 17:10 98.5 102 16 146/84 (104) 98 Room Air 98.5 (JENNY KWONG MD) EKG EKG [] (ARSENIO ULRICH APRN) Radiology/Procedures Radiology/Procedures [] (ARSENIO ULRICH APRN) Course & Med Decision Making Course & Med Decision Making Pertinent Labs and Imaging studies reviewed. (See chart for details) This is a 29-year-old female patient presented to the ED today with multiple complaints including sore throat and scratchy voice for 3 months, also complaining of a cough for 3 months. Patient states she's already been evaluated a couple facilities including [facility] 2 weeks ago and was told she has a viral laryngitis. She presents today requesting to be admitted as well as asking for oxycodone or hydrocodone for her symptoms. Chest x-ray is negative for any acute findings, negative rapid strep. Discharged to home. She currently has an inhaler recommended Tylenol Motrin for pain. (ARSENIO ULRICH APRN) Dragon Disclaimer Dragon Disclaimer This electronic medical record was generated, in whole or in part, using a voice recognition dictation system. (ARSENIO ULRICH APRN) Departure Departure Impression: Primary Impression: Laryngitis, acute Additional Impressions: Cough Sorethroat Disposition: HOME, SELF-CARE Condition: STABLE Referrals: NO PCP (PCP) follow up in on 1-2 weeks JAYA CERVANTES MD follow up in 1-2 weeks Patient Instructions: Cough, Adult, [id number], Laryngitis, [id number], Sore Throat Additional Instructions: Your chest xray and strep test are negative. Please continue using breathing treatments at home You can take Tylenol or Motrin for pain Follow up with your doctor or the provided doctor this week Scripts Benzonatate (TESSALON PERLE) 100 Mg Capsule 1 CAP PO TID, #12 CAP Prov: ARSENIO ULRICH APRN 06/24/19 Guaifenesin/Dextromethorphan (Delsym Cough+Chest Cngst Dm Lq) 180 Ml Liquid 5 ML PO BID for 3 Days, #30 ML 0 Refills Prov: ARSENIO ULRICH APRN 06/24/19 Cyclobenzaprine Hcl (CYCLOBENZAPRINE HCL) 10 Mg Tablet 1 TAB PO TID, #6 TAB Prov: ARSENIO ULRICH APRN 06/24/19 Problem Qualifiers ARSENIO ULRICH APRN Jun 24, 2019 17:16 JENNY KWONG MD Jun 25, 2019 06:50
[2019-06-24] MEDS ORDERED: CYCL10TA2 PO (17:42)
[2019-06-24] MEDS ORDERED: GUAI180L4 PO (17:42)
[2019-06-24] MEDS ORDERED: BENZ100C PO (17:42)
--- NOTE | 2019-06-24 23:40 | RAD ---
Chest PA and lateral: Reason for examination: Cough. Comparison is made to previous study dated 02/18/2019. The heart size is normal. Mediastinum is unremarkable. Lung edmondson are clear. No acute bony abnormalities are seen. Impression: No acute cardiopulmonary disease. Electronically signed by: Flaca Oseguera MD (06/24/2019 11:38 PM) [id number]
== END 2019-06-24 17:45 | disposition home or self-care (01) ==
LOC: ER 16:47
DX: J04.0 Acute laryngitis (principal); J02.9 Acute pharyngitis, unspecified; E11.9 Type 2 diabetes mellitus without complications; K21.9 Gastro-esophageal reflux disease without esophagitis; I10 Essential (primary) hypertension; Z90.49 Acquired absence of other specified parts of digestive tract; Z90.89 Acquired absence of other organs; Z88.0 Allergy status to penicillin; Z88.8 Allergy status to other drugs, medicaments and biological substances
CPT/HCPCS: 71046; 87070; 87880; 99285-25